=== PATIENT | male | born 1980 | race Two or more races ===

== ENCOUNTER 2019-10-02 15:36 | Emergency (ER) | payer SELFPAY ==
[~2019-10-02] VITALS: Ht 167.6 cm; Wt 108.9 kg
--- NOTE | 2019-10-02 15:58 | NUR ---
NUTRITION SERVICES ASSISTANT: PT AMBULATORY WITH STEADY GAIT TO ROOM FROM LOBBY AT THIS TIME.
--- NOTE | 2019-10-02 16:11 | NUR ---
PATIENT AMBULATORY WITH STEADY GAIT TO RESTROOM WITH URINE CUP
--- NOTE | 2019-10-02 16:18 | NUR ---
FIRST CONTACT WITH PATIENT: THIS IS A 39 YO MALE COMING IN FOR BILATERAL LEG SWELLING X3 DAYS, WELL SCROTAL AND PENILE SWELLING X3 DAYS WITH BURNING URINATION. PATIENT DENIES ANY MEDICAL HX OR FAMILY CARDIAC/RESPIRATORY HX, DENIES ANY TRAUMA. SWELLING HAS INCREASED OVER LAST 3 DAYS, STATES "IT'S REALLY UNCOMFORTABLE". DENIES ANY RX MEDICATIONS. BILATERAL 4+ PITTING EDEMA NOTED TO BOTH LEGS, CSM INTACT. ALL MONITORIGIN PLACE, SINUS TACHYCARDIC AT 105. VSS, NADN AT THIS TIME, CALL LIGT IN REACH. UA COLLECTED AND SENT.
[2019-10-02 16:42] LABS: MICROSCOPIC INDICATED
--- NOTE | 2019-10-02 17:00 | NUR ---
PATIENT STANDING IN ROOM, INCREASED DISCOMFORT WHILE SITTING DUE TO SWELLING. VSS AT THIS TIME, ALL MONITORING IN PLACE
--- NOTE | 2019-10-02 17:27 | NUR ---
PATIENT TO US
[2019-10-02 17:35] LABS: ALANINE AMINOTRANSFERASE 82 U/L (12-78); ALBUMIN 1.7 g/dL (3.4-5.0); ANION GAP 8 mmol/L (5-15); CALCIUM 7.2 mg/dL (8.5-10.1); CHLORIDE 110 mmol/L (98-107)
[2019-10-02 17:40] LABS: ALKALINE PHOSPHATASE 130 U/L (45-117); BILIRUBIN,TOTAL 2.9 mg/dL (0.2-1.0); CREATININE 0.77 mg/dL (0.7-1.3); TOTAL PROTEIN 5.5 g/dL (6.4-8.2)
[2019-10-02 18:07] LABS: MEAN CORPUSCULAR HEMOGLOBIN 33.9 pg (27.5-34.5); MEAN CORPUSCULAR HGB CONC 33.7 g/dL (33.2-36.2); RED CELL DISTRIBUTION WIDTH 19.4 % (9.4-14.8)
[2019-10-02 18:56] LABS: MEAN PLATELET VOLUME 10.3 fL (7.4-10.4)
[2019-10-02 18:59] LABS: PLATELET COUNT 30 x10^3/uL (130-400)
--- NOTE | 2019-10-02 19:03 | NUR ---
PATIENT C/O ABD PAIN, AWARE
[2019-10-02 19:12] LABS: MD YES
[2019-10-02 19:17] LABS: BASOS#(MANUAL) 0.03 x10^3/uL (0-0.1); BASOS% (MANUAL) 1 % (0-1); EOS#(MANUAL) 0.03 x10^3/uL (0.0-0.4); EOS% (MANUAL) 1 % (1-7); LYMPH#(MANUAL) 0.84 x10^3/uL (1-3.4); LYMPHS% (MANUAL) 29 % (22-44); MONOS#(MANUAL) 0.15 x10^3/uL (0.3-2.7); MONOS% (MANUAL) 5 % (2-9); SEG#(MANUAL) 1.86 x10^3/uL (1.8-6.8); SEGS% (MANUAL) 64 % (42-75)
[2019-10-02 19:19] LABS: TARGET CELLS 1+
[2019-10-02 19:22] LABS: <PLATELET ESTIMATE> DECREASED; <PLT MORPHOLOGY> NORMAL PLT MORPH; OVALOCYTES 1+; POLYCHROMASIA 1+
[2019-10-02 19:34] VITALS: BP 118/58
--- NOTE | 2019-10-02 20:20 | NUR ---
Patient given discharge instructions and they have confirmed that they understand the instructions. Patient ambulatory with steady gait.
== END 2019-10-02 20:36 | disposition home or self-care (01) ==
LOC: ED 19:45
DX: R60.0 Localized edema (principal); E88.09 Other disorders of plasma-protein metabolism, not elsewhere classified; K70.11 Alcoholic hepatitis with ascites; D61.818 Other pancytopenia; R94.5 Abnormal results of liver function studies; R00.0 Tachycardia, unspecified; R07.89 Other chest pain
CPT/HCPCS: 36415; 71046; 76700; 76870; 80053; 81001; 83690; 83880; 85025; 87086; 93005; 93970; 93975; 99285

== ENCOUNTER 2020-08-31 19:10 | Inpatient (IN) | payer SELFPAY ==
[~2020-08-31] VITALS: Ht 182.9 cm; Wt 182.0 kg
--- NOTE | 2020-08-31 19:10 | NUR ---
LATE ENTRY DUE TO PT CARE: BIB EMS FROM HOME BROTHER CALLED BECAUSE PT WAS NOT FEELING WELL, WHILE WALKING TO AMB PT COLLAPSED, NO PULSE UNRESPONSIVE. FRAMING MANAGER PT GOT 3 ROUNDS OF EPI. PT GOT TOTAL OF 12MINS CPR. FSBS WAS 16 UPON ARRIVAL TO ED.
--- NOTE | 2020-08-31 19:11 | NUR ---
ET IN PLACE SKILLS AUDITOR
--- NOTE | 2020-08-31 19:18 | NUR ---
FSBS 16, AMP OF D50 DIVEN IV PER DR NYE
[2020-08-31] MEDS ORDERED: PROPOFOL 100 ML IV ONE (19:26)
[2020-08-31] MEDS ORDERED: THIAMINE 100 MG/ML, 2ML IM ONE (19:30)
[2020-08-31] MEDS ORDERED: SODIUM CHLORIDE 0.9% 1,000ML IVBOLUS ONE ×3 (19:30→20:30)
[2020-08-31] MEDS ORDERED: THIAMINE 100 MG/ML, 2ML ONE (19:30)
[2020-08-31] MEDS ORDERED: CODE BLUE RESPONSE XX ONE (19:30)
[2020-08-31] MEDS ORDERED: DEXTROSE 50%, 50ML SYRINGE ONE (19:30)
[2020-08-31] MEDS ORDERED: SODIUM CHLORIDE FLUSH 10ML SYR IVF ONE (19:30)
[2020-08-31] MEDS ORDERED: PROPOFOL 100 ML IV PRN (19:30)
--- NOTE | 2020-08-31 19:38 | NUR ---
CONRAD PLACED, NO URINE NOTED PER DR NYE PT COULD BE NO LONGER PRODUCING URINE DUE TO RENAL FAILURE. VERBAL TO KEEP CONRAD IN
[2020-08-31 19:41] LABS: MEAN PLATELET VOLUME 10.9 fL (7.4-10.4); PLATELET COUNT 117 x10^3/uL (130-400); RED BLOOD COUNT 3.03 x10^6/uL (4.38-5.82); RED CELL DISTRIBUTION WIDTH 18.4 % (9.4-14.8)
[2020-08-31 19:47] LABS: ALANINE AMINOTRANSFERASE 88 U/L (12-78); CALCIUM 7.8 mg/dL (8.5-10.1); CHLORIDE 95 mmol/L (98-107); CREATININE 3.92 mg/dL (0.7-1.3)
[2020-08-31 19:49] LABS: ALKALINE PHOSPHATASE 493 U/L (45-117); BILIRUBIN,TOTAL 4.3 mg/dL (0.2-1.0); INTERNATIONAL NORMALIZED RATIO 2.34 (0.93-1.1); PROTHROMBIN TIME 24.6 Seconds (9.6-11.5); TOTAL PROTEIN 5.5 g/dL (6.4-8.2)
[2020-08-31 19:55] LABS: ANION GAP 28 mmol/L (5-15)
[2020-08-31 19:57] LABS: MEAN CORPUSCULAR HGB CONC 29.7 g/dL (33.2-36.2)
[2020-08-31 19:58] LABS: MD YES
[2020-08-31] MEDS ORDERED: LACTULOSE 3.3 GM/5 ML ORAL.SOL RC ONE (20:00)
[2020-08-31] MEDS ORDERED: OMNIPAQUE 350 MG/ML, 100ML BOTTLE ONE (20:18)
--- NOTE | 2020-08-31 20:20 | NUR ---
PT TO CT WITH RESP AND RN, TOLERATED WELL
[2020-08-31 20:29] LABS: BAND#(MANUAL) 7.48 x10^3/uL; BANDS%(MANUAL) 21 % (0-7); EOS#(MANUAL) 0.36 x10^3/uL (0.0-0.4); EOS% (MANUAL) 1 % (1-7); LYMPH#(MANUAL) 1.78 x10^3/uL (1-3.4); LYMPHS% (MANUAL) 5 % (22-44); METAMYELOCYTES# (MANUAL) 1.78 x10^3/uL (0-0); METAMYELOCYTES% (MANUAL) 5 % (0-1); MONOS#(MANUAL) 1.42 x10^3/uL (0.3-2.7); MONOS% (MANUAL) 4 % (2-9); MYELOCYTES# (MANUAL) 1.07 x10^3/uL (0-0); MYELOCYTES% (MANUAL) 3 % (0-0); PROGRANULOCYTES# (MANUAL) 2.49 x10^3/uL (0-0); PROGRANULOCYTES% (MANUAL) 7 % (0-0); SEG#(MANUAL) 18.16 x10^3/uL (1.8-6.8); SEGS% (MANUAL) 51 % (42-75)
[2020-08-31 20:30] LABS: OTHER CELLS # (MANUAL) 1.07 x10^3/uL (0-0); OTHER CELLS % (MANUAL) 3 % (0-0)
[2020-08-31] MEDS ORDERED: ALBUMIN HUMAN 5% 500 ML IV ONE (20:30)
[2020-08-31] MEDS ORDERED: VANCOMYCIN PER PHARMACY MC PRN ×2 (20:30→21:00)
[2020-08-31] MEDS ORDERED: PIPERACILLIN/TAZO/PMX 4.5GM 100 ML IVPB ONE (20:30)
[2020-08-31] MEDS: D5%-0.9% NACL 1,000 ML IV SCH (20:30)
[2020-08-31 20:31] LABS: <PLATELET ESTIMATE> DECREASED
[2020-08-31 20:32] LABS: <PLT MORPHOLOGY> NORMAL PLT MORPH
[2020-08-31 20:33] LABS: ANISOCYTOSIS 1+
[2020-08-31 20:34] LABS: POLYCHROMASIA 1+
[2020-08-31 20:36] LABS: ECHINOCYTES 1+
[2020-08-31 20:38] LABS: MICROCYTOSIS 1+
--- NOTE | 2020-08-31 20:56 | NUR ---
PHARMACY CALLED FOR STAT BICARB DRIP WITH NS VERBAL FROM DR NYE AT THIS TIME
[2020-08-31] MEDS ORDERED: BISACODYL 10 MG SUPP PR PRN (21:00)
[2020-08-31] MEDS ORDERED: PIPERACILLIN/TAZO/PMX 4.5GM 100 ML IVPB SCH (21:00)
[2020-08-31] MEDS ORDERED: LACTULOSE 3.3 GM/5 ML ORAL.SOL RC PRN (21:00)
[2020-08-31] MEDS ORDERED: PHARMACY MAY ADJ FOR RENAL FX MC SCH ×2 (21:00)
[2020-08-31] MEDS ORDERED: VANCOMYCIN 2,000 MG in SODIUM CHLORIDE 0.9% 500 ML IV ONE (21:00)
[2020-08-31] MEDS ORDERED: morphine SULFATE 10 MG/ML, 1ML IVPush PRN (21:00)
[2020-08-31] MEDS ORDERED: SODIUM CHLORIDE 0.9% 1,000 ML IV SCH (21:00)
[2020-08-31] MEDS: HEPARIN 5,000 UNITS/ML, 1ML SQ SCH (21:00)
[2020-08-31] MEDS ORDERED: ACETAMINOPHEN 325 MG TABLET PO PRN (21:00)
[2020-08-31] MEDS ORDERED: PHARMACY MAY ADJ FOR RENAL FX MC PRN (21:00)
[2020-08-31] MEDS ORDERED: PROMETHAZINE 25 MG/ML, 1ML IM PRN (21:00)
[2020-08-31] MEDS ORDERED: LACTULOSE 20 GM/30 ML UDC NG PRN (21:00)
[2020-08-31] MEDS ORDERED: SENNA 176 MG/5 ML ORAL SOL NG PRN (21:00)
[2020-08-31] MEDS ORDERED: SODIUM BICARB 8.4%, 50ML SYRINGE IVPush ONE (21:00)
[2020-08-31] MEDS ORDERED: LIDOCAINE-MPF 1%, 2ML ENDO PRN (21:00)
[2020-08-31] MEDS ORDERED: ONDANSETRON 2MG/ML, 2ML IVPush PRN (21:00)
[2020-08-31] MEDS ORDERED: SENNA/DOCUSATE TABLET NG PRN (21:00)
--- NOTE | 2020-08-31 21:07 | NUR ---
DR VALLE AT BEDSIDE FOR BRONCH AT THIS TIME
[2020-08-31] MEDS ORDERED: SODIUM BICARB 8.4%, 50ML SYRINGE ONE ×2 (21:12→21:20)
[2020-08-31] MEDS ORDERED: PLEASE ENTER HEIGHT MC SCH ×2 (21:30→22:30)
[2020-08-31] MEDS ORDERED: DEXTROSE 50%, 50ML SYRINGE IVPush PRN (21:30)
[2020-08-31] MEDS: DIAZEPAM 10 MG TABLET PO SCH (21:30)
[2020-08-31] MEDS ORDERED: SODIUM BICARBONATE 1 MEQ/ML, 50ML VIAL IVPush ONE (21:30)
[2020-08-31] MEDS ORDERED: GLUCAGON 1 MG IM PRN (21:30)
[2020-08-31] MEDS ORDERED: DEXTROSE 4 GM TAB.CHEW PO PRN (21:30)
[2020-08-31] MEDS ORDERED: DEXTROSE 10%, 250ML IV ONE (21:30)
[2020-08-31] MEDS: SODIUM CHLORIDE FLUSH 10ML SYR IVF SCH (21:30)
[2020-08-31] MEDS: SODIUM BICARBONATE 8.4% 150 MEQ in DEXTROSE 5% 1,000 ML IV SCH ×2 (21:32→23:02)
[2020-08-31 21:55] LABS: FREE T4 (FREE THYROXINE) 0.61 ng/dL (0.76-1.46)
--- NOTE | 2020-08-31 21:55 | NUR ---
VENT SETTINGS 20, 550, 100%, 5 7.0 TUBE 24 AT THE LIP
--- NOTE | 2020-08-31 22:04 | NUR ---
REPORT TO [facility] SHARMA READY FOR TRANSFER TO 146
[2020-08-31 22:05] VITALS: BP 103/50
[2020-08-31] MEDS ORDERED: PHARMACOKINETIC MONITORING MC PRN (22:30)
[2020-08-31] MEDS: FAMOTIDINE 20 MG/2 ML IVPush SCH (23:37)
[2020-08-31] MEDS: NOREPINEPHRINE 8 MG in SODIUM CHLORIDE 0.9% 242 ML IV PRN (23:54)
[2020-09-01] MEDS ORDERED: PIPERACILLIN/TAZO 3.375 GM in DEXTROSE 5% 50 ML IVPB SCH (00:30)
[2020-09-01] MEDS ORDERED: SODIUM BICARB 8.4%, 50ML SYRINGE IVPush STA (01:18)
[2020-09-01] MEDS: PIPERACILLIN/TAZO 3.375 GM in DEXTROSE 5% 50 ML IVPB SCH ×3 (03:00→16:41)
[2020-09-01] MEDS: DIAZEPAM 10 MG TABLET PO SCH ×2 (03:01→09:30)
[2020-09-01] MEDS: NOREPINEPHRINE 8 MG in SODIUM CHLORIDE 0.9% 242 ML IV PRN ×3 (03:42→07:29)
[2020-09-01] MEDS: SODIUM BICARBONATE 8.4% 150 MEQ in DEXTROSE 5% 1,000 ML IV SCH ×2 (03:44→11:43)
[2020-09-01] MEDS: D5%-0.9% NACL 1,000 ML IV SCH ×3 (04:30→16:17)
[2020-09-01 04:39] LABS: MD YES
[2020-09-01] MEDS: HEPARIN 5,000 UNITS/ML, 1ML SQ SCH ×2 (07:02→12:56)
[2020-09-01] MEDS ORDERED: VASOPRESSIN 20 UNIT in SODIUM CHLORIDE 0.9% 99 ML IV PRN (07:39)
[2020-09-01 08:08] LABS: MEAN CORPUSCULAR HEMOGLOBIN 33.4 pg (27.5-34.5); MEAN CORPUSCULAR HGB CONC 30.1 g/dL (33.2-36.2); MEAN PLATELET VOLUME 9.3 fL (7.4-10.4); PLATELET COUNT 80 x10^3/uL (130-400); RED BLOOD COUNT 2.16 x10^6/uL (4.38-5.82); RED CELL DISTRIBUTION WIDTH 17.7 % (9.4-14.8)
[2020-09-01 08:15] LABS: ALANINE AMINOTRANSFERASE 191 U/L (12-78); ALBUMIN 1.1 g/dL (3.4-5.0); ANION GAP 28 mmol/L (5-15); CALCIUM 6.2 mg/dL (8.5-10.1); CHLORIDE 94 mmol/L (98-107); CREATININE 4.13 mg/dL (0.7-1.3)
[2020-09-01 08:17] LABS: ALKALINE PHOSPHATASE 387 U/L (45-117); BILIRUBIN,TOTAL 4.3 mg/dL (0.2-1.0)
[2020-09-01 08:36] LABS: MD YES
[2020-09-01 08:38] LABS: BANDS%(MANUAL) 11 % (0-7); BASOS#(MANUAL) 0.32 x10^3/uL (0-0.1); BASOS% (MANUAL) 1 % (0-1); LYMPH#(MANUAL) 1.91 x10^3/uL (1-3.4); LYMPHS% (MANUAL) 6 % (22-44); METAMYELOCYTES# (MANUAL) 2.54 x10^3/uL (0-0); METAMYELOCYTES% (MANUAL) 8 % (0-1); MONOS#(MANUAL) 4.13 x10^3/uL (0.3-2.7); MONOS% (MANUAL) 13 % (2-9); MYELOCYTES# (MANUAL) 2.54 x10^3/uL (0-0); MYELOCYTES% (MANUAL) 8 % (0-0); SEG#(MANUAL) 16.85 x10^3/uL (1.8-6.8); SEGS% (MANUAL) 53 % (42-75)
[2020-09-01 08:39] LABS: <PLATELET ESTIMATE> DECREASED; <PLT MORPHOLOGY> NORMAL PLT MORPH; ANISOCYTOSIS 1+; MICROCYTOSIS 1+; PMNS WITH VACUOLES 1+; POLYCHROMASIA 1+; TOXIC GRAN 2+
[2020-09-01] MEDS ORDERED: NOREPINEPHRINE 32 MG in SODIUM CHLORIDE 0.9% 218 ML IV PRN (09:30)
[2020-09-01] MEDS: SODIUM CHLORIDE FLUSH 10ML SYR IVF SCH (10:20)
[2020-09-01] MEDS: FAMOTIDINE 20 MG/2 ML IVPush SCH (10:23)
[2020-09-01] MEDS ORDERED: NOREPINEPHRINE 1 MG/ML, 4ML ONE (10:51)
[2020-09-01] MEDS ORDERED: SODIUM BICARB 8.4%, 50ML SYRINGE ONE ×2 (10:51→15:00)
[2020-09-01] MEDS ORDERED: CODE BLUE RESPONSE XX ONE ×2 (10:51→18:00)
[2020-09-01] MEDS ORDERED: DEXTROSE 50%, 50ML SYRINGE IVPush PRN (12:00)
[2020-09-01] MEDS ORDERED: GLUCAGON 1 MG IM PRN (12:00)
[2020-09-01] MEDS ORDERED: PANTOPRAZOLE 40 MG IV IVPush SCH (12:00)
[2020-09-01] MEDS ORDERED: DEXTROSE 4 GM TAB.CHEW PO PRN (12:00)
[2020-09-01] MEDS ORDERED: SODIUM CHLORIDE FLUSH 10ML SYR IVF SCH (12:00)
[2020-09-01] MEDS ORDERED: OCTREOTIDE 1,250 MCG in SODIUM CHLORIDE 0.9% 247.5 ML IV PRN (12:00)
[2020-09-01] MEDS ORDERED: PHYTONADIONE 10 MG in SODIUM CHLORIDE 0.9% 50 ML IV ONE (12:30)
[2020-09-01] MEDS ORDERED: DEXTROSE 50%, 50ML SYRINGE ONE (15:00)
[2020-09-01] MEDS ORDERED: EPINEPHRINE SYRINGE 0.1 MG/ML, 10ML ONE ×4 (15:00→17:59)
[2020-09-01] MEDS ORDERED: DEXTROSE 10%, 1,000ML IV SCH (16:30)
[2020-09-01] MEDS ORDERED: SODIUM CHLORIDE 0.9% 1,000 ML IV SCH (21:00)
[2020-09-01] MEDS ORDERED: DIAZEPAM 5 MG TABLET PO SCH (21:30)
[2020-09-02] MEDS ORDERED: THIAMINE 100 MG in DEXTROSE 5% 50 ML IVPB SCH (09:00)
== END 2020-09-01 17:46 | disposition expired | DRG 871 ==
LOC: EDBD → EDSEX → MERGE 19:10 → ED 19:40 → EDIP 22:00 → CSU 22:19
PROVIDERS: ATTEND Hospitalist
PROC: 0B9F8ZX Drainage of Right Lower Lung Lobe, Via Natural or Artificial Opening Endoscopic, Diagnostic (ICD-10-PCS; principal; 2020-08-31)
PROC: 02HV33Z Insertion of Infusion Device into Superior Vena Cava, Percutaneous Approach (ICD-10-PCS; 2020-08-31)
DX: A41.9 Sepsis, unspecified organism (principal); J18.9 Pneumonia, unspecified organism; J86.9 Pyothorax without fistula; J96.01 Acute respiratory failure with hypoxia; K72.00 Acute and subacute hepatic failure without coma; R65.21 Severe sepsis with septic shock; D68.9 Coagulation defect, unspecified; E87.1 Hypo-osmolality and hyponatremia; E87.2 Acidosis; G93.1 Anoxic brain damage, not elsewhere classified; J90 Pleural effusion, not elsewhere classified; K92.2 Gastrointestinal hemorrhage, unspecified; N17.9 Acute kidney failure, unspecified; E72.20 Disorder of urea cycle metabolism, unspecified; Z20.822 Contact with and (suspected) exposure to COVID-19; D69.6 Thrombocytopenia, unspecified; E16.2 Hypoglycemia, unspecified; D72.823 Leukemoid reaction; D72.829 Elevated white blood cell count, unspecified; F10.10 Alcohol abuse, uncomplicated; I46.9 Cardiac arrest, cause unspecified; K70.9 Alcoholic liver disease, unspecified; Z87.891 Personal history of nicotine dependence; Z79.899 Other long term (current) drug therapy; Z79.891 Long term (current) use of opiate analgesic; Z79.01 Long term (current) use of anticoagulants
CPT/HCPCS: 31624; 36415; 36600; 70450; 71045; 71260; 74177; 80053; 80320; 82140; 82248; 82803; 82962; 82977; 83605; 83735; 84145; 84439; 84443; 84478; 85025; 85610; 85730; 87040; 87070; 87081; 87147; 87181; 87205; 87635; 92950; 93005; 94002; 94003; 95819; 96360; 96372; 99285; G0378; J1644; J2354; J2543; J3370; J3411; J3430; J7070; P9045; Q9967; C9113; G0480; J7030; J7040; J7050